=== PATIENT | female | born 1955 | race Caucasian/White ===

== ENCOUNTER 2017-10-13 13:25 | Emergency (ER) | payer BC ==
[~2017-10-13] VITALS: Ht 152.4 cm; Wt 66.7 kg
[~2017-10-13 13:25] MED LIST: COZAAR100 MG PO; PERCOCET 5/31 TABLET PO; ZOLOFT100 MG PO
[2017-10-13 13:55] LABS: APPEARANCE SL.HAZY ((CLEAR)); BILIRUBIN NEGATIVE; BLOOD LARGE; COLOR YELLOW ((YELLOW)); GLUCOSE (STRIP) NEGATIVE; KETONES 5; LEUKOCYTES TRACE; NITRITE NEGATIVE; PROTEIN (STRIP) 100; SPECIFIC GRAVITY 1.028 (1.000-1.030)
[2017-10-13 13:57] LABS: HEMATOCRIT 37.8 % (36.0-46.0); HEMOGLOBIN 13.2 G/DL (11.9-15.5); MCH 29.5 PG (29.0-34.0); MCHC 34.9 G/DL (30.0-36.0); MCV 84.4 FL (83-99); PLATELET COUNT 270 K/uL (156-360); RBC DIS.WIDTH-CV 11.7 % (11.8-14.6); RBC DIS.WIDTH-SD 35.7 % (39-53); RED BLOOD COUNT 4.48 M/uL (3.80-5.20); WHITE BLOOD COUNT 11.7 K/uL (4.1-10.2)
[2017-10-13 14:07] LABS: CHLORIDE 105 mEq/L (99-109); POTASSIUM 4.1 mEq/L (3.7-5.4); SODIUM 139 mEq/L (136-147)
[2017-10-13 14:09] LABS: GLUCOSE 103 mg/dL (70-99)
[2017-10-13 14:09] LABS: BACTERIA NONE SEEN /HPF; EPITHELIAL CELLS RARE /HPF; MUCUS 4+ /LPF; RED BLOOD CELLS TNTC /HPF (0-5); UCUL ADDED? YES
[2017-10-13 14:13] LABS: CREATININE 0.9 mg/dL (0.6-1.3); GFR ESTIMATE (CALCULATED) > 59 mL/min/
[2017-10-13 14:14] LABS: UREA NITROGEN (BUN) 13 mg/dL (9-23)
[2017-10-13] MEDS ORDERED: NORCO 5/3251 TABLET PO (18:30)
[2017-10-13] MEDS ORDERED: CIPRO500 MG PO (18:30)
[2017-10-13] MEDS ORDERED: ZOFRAN4 MG PO (18:30)
[2017-10-13] MEDS ORDERED: FLOMAX0.4 MG PO (18:30)
[2017-10-13 18:54] VITALS: BP 167/98
== END 2017-10-13 18:55 | disposition home or self-care (01) ==
LOC: EME 13:25
DX: N20.0 Calculus of kidney (principal); N10 Acute pyelonephritis; E78.5 Hyperlipidemia, unspecified; I10 Essential (primary) hypertension; Z87.442 Personal history of urinary calculi
CPT/HCPCS: 74176; 80048; 81003; 85027; 87086; 99281; 99284; J0696

== ENCOUNTER → 2017-10-14 | Outpatient (CLI) | payer BC ==
[~2017-10-14] MED LIST changes: +CIPRO500 MG PO; +FLOMAX0.4 MG PO; +NORCO 5/3251 TABLET PO; +ZOFRAN4 MG PO
== END | disposition home or self-care (01) ==
LOC: CDC 13:02
DX: Z01.810 Encounter for preprocedural cardiovascular examination (principal); N20.0 Calculus of kidney; R94.31 Abnormal electrocardiogram [ECG] [EKG]
CPT/HCPCS: 93000